=== PATIENT | male | born 1965 | race Two or more races ===

== ENCOUNTER → 2024-07-20 | Outpatient (CLI) | payer MEDICAID, SELFPAY ==
--- NOTE | 2024-07-20 13:15 | XR_ITS ---
EXAMINATION: PET/CT FUSION SKULL TO THIGH EXAM DATE AND TIME: July 20, 2024 1354 hours INDICATIONS: Diagnosis thyroid cancer restaging post treatment CTDI:vol (mGy) 8.45 DLP: (mGycm) 876.96 PROCEDURE: 16.28 mCi FDG was administered intravenously To allow for distribution and uptake of radiotracer, the patient was allowed to rest quietly in a shielded room. Imaging was performed on an integrated 16-slice PET/CT scanner, with scanning from the skull base to the mid thigh. Serum blood glucose at the time of the injection was measured 104 mg/dL. CT scanning was performed without oral or intravenous contrast material. FINDINGS: Head and Neck: 26 mm hypermetabolic right high paratracheal lymph node Minimal hypermetabolic hilar lymphadenopathy Too numerous to count hypermetabolic pulmonary nodules ranging in size from 1 mm to 26 mm in the left upper lobe and 32 mm in the left lower lobe Chest: There is no sherrell hypermetabolism in the chest. There are no pulmonary nodules. Abdomen and Pelvis: There is no sherrell hypermetabolism in retroperitoneal or pelvic chains. The spleen is normal in size and FDG avidity. Musculoskeletal: Marrow uptake is within normal range. IMPRESSION: 26 mm hypermetabolic right high paratracheal lymph node Minimal bilateral hypermetabolic hilar lymphadenopathy Too numerous to count hypermetabolic metastatic pulmonary nodules
== END | disposition home or self-care (01) ==
LOC: CDIM 12:53
PROVIDERS: Referring Provider Internal Medicine Hematology & Oncology; Visit Provider Internal Medicine Hematology & Oncology
DX: C73 Malignant neoplasm of thyroid gland (principal); C78.00 Secondary malignant neoplasm of unspecified lung; R59.0 Localized enlarged lymph nodes
CPT/HCPCS: 78815; A9552